=== PATIENT | male | born 1970 | race Caucasian/White ===

== ENCOUNTER 2023-07-04 17:07 | Emergency (ER) | payer SELFPAY ==
[2023-07-04 17:09] VITALS: BP 193/94; PULSE 87; RESP 19; TEMP 36.8; O2SAT 100; BMI 26.6
[2023-07-04 17:37] LABS: Bedside Glucose 468 mg/dL (74-106)
--- NOTE | 2023-07-04 17:44 | EDS_ITS ---
HPI History of Present Illness Chief Complaint: Hyperglycemia Informant: patient and spouse/S.O. Narrative Narrative: With high blood sugars. Patient states he came in today because his sugars are about 500. This started over the last couple days. He did have macaroni and cheese. Probably 3 or 4 years ago. For about a year or 2 they stayed at 160 range. Then they started to go up to 200. The last few months they have been going 200-300. The last few days they have been 200-500. He does have polyuria polydipsia and occasional clouding and halos in his vision. He does not overall feel sick though. No chest pain or trouble breathing. He has not seen a doctor in years. He has no medications that he takes no allergies. He started tracking his blood PFSH PFSH Home Medications metformin 500 mg tablet 500 mg PO BID #60 tabs 07/04/23 [Rx Last Taken Unknown] Allergy/AdvReac Type Severity Reaction Status Date / Time No Known Allergies Allergy Verified 07/04/23 17:09 Social History Smoking Status: Current every day smoker tobacco type: cigarettes ROS ROS ED ROS Narrative A complete review of systems was performed and is negative except as documented in the history of present illness. Some specific details below. Constitutional: No recent fevers or chills. EYE: No pain. Have occasional clouding of the vision and halos at night. ENT: No difficulty swallowing. No swelling. No pain. CV: No chest pain or palpitations. Respiratory: No dyspnea. No hemoptysis. No difficulty taking breaths. GI: Nausea vomiting or diarrhea. : No dysuria or hematuria. No frequency. Musculoskeletal: No recent trauma. No pains. Skin: No rash. Nondiaphoretic. Neuro: No weakness or numbness. Endocrine: He does have both polyuria or polydipsia. EXAM Physical Exam Narrative Exam Narrative: CONSTITUTIONAL: Patient is nontoxic in appearance. The patient looks comfortable. HEENT: No notable trauma. Mucous membranes somewhat dry. No sinus tenderness. No indication of pain with swallowing. Mildly poor dentition EYES: No conjunctival injection. No proptosis. CARDIOVASCULAR: Regular rate. Regular rhythm. No notable murmur. No JVD. RESPIRATORY: No respiratory distress. Breathing is unlabored. No wheezes. No rhonchi. No rales. No pain with a deep breath. GASTROINTESTINAL: Not distended. Bowel sounds are normal. No tenderness. No guarding. No rebound. No palpable mass. No bruit. GENITOURINARY: No tenderness over the bladder. No CVA tenderness. MUSCULOSKELETAL: Atraumatic. No peripheral edema. No cord. No tenderness along the deep venous system. No asymmetry. NEUROLOGICAL: Patient is alert and appropriate. No focal deficit noted. SKIN: No noted rashes. No diaphoresis. PSYCHIATRIC: Patient is calm. Mood is appropriate. Const Vital Signs: 07/04/23 17:09 07/04/23 17:23 Temperature 98.2 F Temperature Source Temporal Pulse Rate 87 Respiratory Rate 19 H Respiratory Effort Normal Blood Pressure 193/94 H Blood Pressure Mean 127 Pulse Ox 100 Oxygen Delivery Method Room Air MDM MDM MDM Narrative Medical decision making narrative: Patient CBC shows no marked abnormalities. Patient's electrolytes show pretty normal electrolytes and preserved renal function but his glucose was high at 430. Patient's LFTs were normal. His [id number] glucose was 468. He was given insulin and IV fluids. He is only down to about 400 now. This should continue to drop but we will get him more insulin and more IV fluids to see if we get him down a little lower. Patient's recheck he is 221. He would like to go home. I will get him started on metformin. I explained that he will likely need an increase the dose or other medications. But this would at least initiate some therapy pending seeing a physician. We discussed reasons to return. Lab Data Attestation: I reviewed the patient's lab results. Labs: Laboratory Results - last 24 hr 07/04/23 07/04/23 07/04/23 17:19 17:21 18:53 WBC 9.6 RBC 4.83 Hgb 15.4 Hct 43.5 MCV 90.1 MCH 31.9 MCHC 35.4 RDW Std Deviation 38.7 RDW Coeff of [place]illa 11.8 Plt Count 222 MPV 11.1 Immature Gran % (Auto) 0.500 Neut % (Auto) 62.4 Lymph % (Auto) 23.5 [place] % (Auto) 7.5 Eos % (Auto) 5.4 H Baso % (Auto) 0.7 Absolute Neuts (auto) 6.0 Absolute Lymphs (auto) 2.26 Nucleated RBC % 0 Sodium 134 L Potassium 3.9 Chloride 98 Carbon Dioxide 30.0 Anion Gap 6 BUN 18 Creatinine 1.00 Estim Creat Clear Calc 85.43 Est GFR (MDRD) Af Amer 100 Est GFR (MDRD) Non-Af 83 BUN/Creatinine Ratio 18.0 Glucose 439 H Calcium 9.0 Total Bilirubin 0.50 AST 21 ALT 42 Alkaline Phosphatase 67 Total Protein 7.8 Albumin 3.7 Globulin 4.1 Albumin/Globulin Ratio 0.9 POC Glucose 468 H* 401 H Discharge Plan Triage Chief Complaint: Hyperglycemia ED Provider: Antony Rodriguez Dx/Rx/DC Orders Clinical Impression: Hyperglycemia, New onset type 2 diabetes mellitus Instructions: ED Hyperglycemia New Susp Diabetes Prescriptions: New metformin 500 mg tablet 500 mg PO BID Qty: 60 0RF Primary Care Provider: Care Physician,No Primary Referrals: Mandi Pelletier MD [Med Staff - [employer]] - As soon as possible Care Physician,No Primary [Primary Care Provider] - Disposition Disposition: Home, Self Care
[2023-07-04] MEDS: 0.9% Normal Saline 1,000 ML 1000 ML IV (17:47)
[2023-07-04] MEDS: Insulin Lispro 100 UNIT/ML INSULN.PEN 12 UNIT SC (17:50)
[2023-07-04 17:59] LABS: Absolute Lymphocyte Count 2.26 X10^3/uL (0.83-4.51); Basophil# 0.07 X10^3/uL; Basophil% 0.7 % (0-1); Eosinophil# 0.52 X10^3/uL; Eosinophils% 5.4 % (0-5); Hematocrit 43.5 % (40-54); Hemoglobin 15.4 g/dL (13.0-16.5); Lymphocyte # 2.26 X10^3/ul (0.83-4.51); Lymphocyte % 23.5 % (19-41); Mean Corp Hgb Conc 35.4 g/dL (32-36); Mean Corpuscular Hgb 31.9 pg (27.0-32.0); Mean Corpuscular Volume 90.1 fL (80-94); Mean Platelet Vol. 11.1 fl (6.2-12.0); Monocyte# 0.72 X10^3/uL; Monocyte% 7.5 % (0-10); NRBC Flagged by Analyzer 0 % (0-5); Neutrophil % 62.4 % (47-70); Platelet Count 222 K/mm3 (150-450); RBC Distribution Width CV 11.8 % (11.6-14.6); RBC Distribution Width SD 38.7 fl (35.1-43.9); Red Blood Count 4.83 M/mm3 (4.6-6.2); White Blood Count 9.6 K/mm3 (4.4-11.0)
[2023-07-04 18:26] LABS: ALB/GLOB Ratio 0.9 RATIO (0.9-2.4); AST(SGOT) 21 U/L (15-37); Alanine Aminotransfer ALT/SGPT 42 U/L (16-61); Albumin, Serum 3.7 g/dL (3.2-5.0); Alkaline Phosphatase 67 U/L (45-117); Anion Gap 6 (5-15); BUN 18 mg/dL (7-18); Chloride 98 mmol/L (98-107); EST Glomerular Filtration Rate 83 mL/min (>60); Est Glom Filt Rate - Afr Amer 100 mL/min (>60); Estimated Creatinine Clearance 85.43 ml/min; Globulin 4.1 g/dL (2.2-4.2); Glucose 439 mg/dL (74-106); Potassium 3.9 mmol/L (3.5-5.1); Protein, Total 7.8 g/dL (6.4-8.2); Sodium Level 134 mmol/L (136-145)
[2023-07-04 19:11] LABS: Bedside Glucose 401 mg/dL (74-106)
[2023-07-04] MEDS: Insulin Lispro 100 UNIT/ML INSULN.PEN 14 UNIT SC (19:23)
[2023-07-04] MEDS: 0.9% Normal Saline 1,000 ML 999 ML IV (19:23)
[2023-07-04 21:02] LABS: Bedside Glucose 221 mg/dL (74-106)
[2023-07-04] MEDS: metFORMIN HCl 500 MG Tablet PO (21:23)
[2023-07-04 21:26] VITALS: PULSE 95; RESP 19; O2SAT 100
== END 2023-07-04 21:26 | disposition home or self-care (01) ==
PROVIDERS: Emergency Provider Emergency Medicine; Visit Provider Emergency Medicine
DX: E11.65 Type 2 diabetes mellitus with hyperglycemia (principal); F17.210 Nicotine dependence, cigarettes, uncomplicated
CPT/HCPCS: 80053; 82962; 85025; 96360; 96361; 96372; 99284; J7030; A4216

== ENCOUNTER 2023-08-24 16:20 | Emergency (ER) | payer SELFPAY ==
[2023-08-24 16:21] VITALS: BP 167/95; PULSE 91; RESP 16; TEMP 36.7; O2SAT 99; BMI 27.4
--- NOTE | 2023-08-24 17:19 | EX.ED.DYSGE1 ---
HPI History of Present Illness Chief Complaint: Hyperglycemia Informant: patient Narrative Narrative: Is a 53-year-old male presenting with dizziness, chest discomfort and high blood sugar. Patient was seen about a month ago for dizziness and found to be hyperglycemic likely new onset diabetic. He was given follow-up with [facility] primary care (Dr. Pelletier). He has been working on trying to follow-up there but has been having of some issues. He is officially been accepted as a patient but they are now figuring out his insurance. He notes he has been dizzy daily. He checked his blood sugar at work today however and his meter read high. He also notes today he has had chest discomfort. He points to the right anterior chest. He states been constant all day. He notes he did have it over a month ago but has not had it since. States he does feel mildly short of breath intermittently but is currently not complain of shortness of breath. The pain does not radiate. He describes it as both sharp and dull. Denies any aggravating or alleviating factors. Denies any swelling of his legs. Notes he did run out of the metformin prescribed him last month in the ER. Patient denies any polyuria or polydipsia at this time. Denies any urinary symptoms. Does report some nausea but denies any vomiting. Denies any change in his appetite. Positive tobacco use. Denies any alcohol or illicit drug use. Prior ER visit note reviewed from 07/04. [facility] Home Medications metformin 500 mg tablet 500 mg PO BID #60 tabs 08/24/23 [Rx Last Taken Unknown] Allergy/AdvReac Type Severity Reaction Status Date / Time No Known Allergies Allergy Verified 07/04/23 17:09 Social History Smoking Status: Current every day smoker tobacco type: cigarettes ROS ROS ED Constitutional Constitutional ED: Denies chills or fever(s) Eyes Eyes: Denies blurry vision or change in vision ENT ENT ED: Denies sore throat Cardiovascular Cardiovascular: Reports chest pain; Denies palpitations Respiratory/Chest Respiratory/Chest: Reports dyspnea; Denies cough Gastrointestinal Gastrointestinal: Denies abdominal pain, nausea or vomiting Musculoskeletal Musculoskeletal: Denies arthralgias or myalgias Integumentary Denies rash Neurologic Neurologic: Denies headache(s) or weakness Psychiatric Psychiatric: Denies anxiety Endocrine Endocrinology: Denies polydipsia or polyuria Hematologic/Lymphatic Hematologic/Lymphatic: Denies easy bleeding or easy bruising EXAM Physical Exam Const Vital Signs: 08/24/23 16:21 08/24/23 16:51 08/24/23 17:48 Temperature 98.0 F Temperature Source Temporal Pulse Rate 91 Pulse Rate [Lying] Pulse Rate [Sitting (for 1 minute prior to obtaining)] Pulse Rate [Standing (for 1 minute prior to obtaining)] Respiratory Rate 16 Respiratory Effort Normal Non-Labored Respiratory Pattern Normal Blood Pressure 167/95 H Blood Pressure [Lying] Blood Pressure [Sitting (for 1 minute prior to obtaining)] Blood Pressure [Standing (for 1 minute prior to obtaining)] Blood Pressure Mean 119 Blood Pressure Mean [Lying] Blood Pressure Mean [Sitting (for 1 minute prior to obtaining)] Blood Pressure Mean [Standing (for 1 minute prior to obtaining)] Pulse Ox 99 98 Oxygen Delivery Method Room Air Room Air 08/24/23 18:22 08/24/23 18:21 Temperature Temperature Source Pulse Rate 76 Pulse Rate [Lying] 72 Pulse Rate [Sitting (for 1 minute prior to obtaining)] 69 Pulse Rate [Standing (for 1 minute prior to obtaining)] 80 Respiratory Rate 16 Respiratory Effort Respiratory Pattern Blood Pressure Blood Pressure [Lying] 142/87 H Blood Pressure [Sitting (for 1 minute prior to obtaining)] 143/86 H Blood Pressure [Standing (for 1 minute prior to obtaining)] 129/86 H Blood Pressure Mean Blood Pressure Mean [Lying] 105 Blood Pressure Mean [Sitting (for 1 minute prior to obtaining)] 105 Blood Pressure Mean [Standing (for 1 minute prior to obtaining)] 100 Pulse Ox 98 Oxygen Delivery Method Room Air Positive well nourished and well developed General Appearance ED: well developed and NAD HEENT Reports moist mucous membranes Eyes PERRL and EOMs intact bilaterally Neck supple and no JVD Chest Wall inspection of chest normal and palpation of chest normal Chest Narrative: No reproducible chest wall tenderness Resp normal respiratory effort and clear to auscultation bilaterally Cardio regular rate, regular rhythm and no murmurs GI normal to inspection, nondistended, normoactive bowel sounds and non-tender Extremity normal to inspection General Extremety ED: Negative for edema or tenderness General Extremity: Negative for edema Neuro oriented x3 Sensorium / Orientation: alert Motor Exam: Negative for general weakness Psych mental status grossly normal Skin no rashes or lesions noted and no wounds MDM MDM MDM Narrative Medical decision making narrative: Patient evaluated for elevated blood sugar as well as chest pain. His blood sugars only been elevated for some time now. He is trying to establish with a PCP to get this under control. Glucose in triage is 267. Will obtain BMP to see what his serum glucose is as well as a cardiac work-up given his chest pain all day. A single troponin should be sufficient if it is normal since the pain has been constant all day. Patient was given IV fluids and check orthostatic vital signs. Patient does not truly orthostatic positive but does have a mild increase in heart rate and drop in blood pressure when he goes from sitting to standing. Is given IV fluids. He states he is has the same dizziness he has been having. He is mildly hyperglycemic however his blood sugars only 294. This is nowhere near high. His CBC and BMP is otherwise normal. He has a normal bicarb any x-rays a low anion gap. His labs are not consistent with DKA or HH NK. Patient will be given a new prescription for metformin with encouragement on the importance of following up outpatient. Seems that he is in the process of following up with [facility]/getting established. At this time I do not think patient requires admission. I do not think his chest discomfort is cardiac and his EKG does not show any acute ischemic changes and his high-sensitivity troponin is 4. Patient comfortable this plan of care. Discharged home in stable condition Lab Data Attestation: I reviewed the patient's lab results. Labs: Laboratory Results - last 24 hr 08/24/23 08/24/23 16:25 17:37 WBC 10.1 RBC 4.55 L Hgb 14.7 Hct 41.6 MCV 91.4 MCH 32.3 H MCHC 35.3 RDW Std Deviation 39.7 RDW Coeff of Kamilla 11.8 Plt Count 206 MPV 10.7 Immature Gran % (Auto) 0.300 Neut % (Auto) 57.3 Lymph % (Auto) 26.2 [place] % (Auto) 8.3 Eos % (Auto) 7.3 H Baso % (Auto) 0.6 Absolute Neuts (auto) 5.8 Absolute Lymphs (auto) 2.64 Nucleated RBC % 0 Sodium 134 L Potassium 3.9 Chloride 104 Carbon Dioxide 28.0 Anion Gap 2 L BUN 19 H Creatinine 0.94 Estim Creat Clear Calc 90.88 Est GFR (MDRD) Af Amer 108 Est GFR (MDRD) Non-Af 89 BUN/Creatinine Ratio 20.2 H Glucose 294 H Calcium 8.8 Troponin I High Sens 4 POC Glucose 267 H Radiography Chest X-Ray - ED: 2 View, Read by ED Physician, Read by Radiologist and No Acute Disease Diagnostic Testing: Clinical Impression(s) from Imaging Studies Chest X-Ray 08/24/23 17:48 IMPRESSION: Normal x-ray examination of the chest. Electronically Signed: Tenzin Fleming MD at 18:07 EDT , Rhythm Strip Rhythm Strip: Sinus Rhythm Rate: 80 Ectopy: None EKG Initial EKG: Attestation: I personally reviewed and interpreted this EKG as follows: Interpretation: Sinus Rhythm Comments: Normal sinus rhythm at a rate of 80 bpm First-degree AV block with a ME interval of 220 Normal axis Normal intervals Normal ST segments Compared to prior EKG patient now has a first-degree AV block Discharge Plan Triage Chief Complaint: Hyperglycemia ED Provider: Veena Roland Dx/Rx/DC Orders Clinical Impression: Hyperglycemia, Chest pain Instructions: ED Chest Pain, Uncertain Cause, ED Diabetic Hyperglycemia Prescriptions: Continued metformin 500 mg tablet 500 mg PO BID Qty: 60 0RF Primary Care Provider: Care Physician,No Primary Referrals: Mandi Pelletier MD [Med Staff - Practical Nursing Teacher] - As soon as possible Care Physician,No Primary [Primary Care Provider] - Activity Restrictions/Additional Instructions: Please make sure you are drinking plenty of fluids. You did have some mild findings of dehydration on your vital signs. Please follow-up with family care as we discussed. You have been given another month supply of your metformin for your blood sugar.
[2023-08-24 17:28] LABS: Bedside Glucose 267 mg/dL (74-106)
[2023-08-24] MEDS: 0.9% Normal Saline (1000mL) 1,000 ML 1000 ML IV (17:39)
[2023-08-24 17:48] VITALS: O2SAT 98
--- NOTE | 2023-08-24 17:48 | RAD_ITS ---
STUDY: X-RAY CHEST REASON FOR EXAM: Male, 53 years old. chest pain TECHNIQUE: PA and lateral views of the chest. COMPARISON: None. FINDINGS: The lungs are clear and expanded. There is no demonstrated pleural abnormality. Normal size heart. Normal mediastinum and digna. Normal visualized pulmonary arteries. Normal visualized aortic arch and descending thoracic aorta. Normal visualized thoracic spine. Normal visualized ribs, clavicles, and shoulders. There is no demonstrated abnormality of the visualized soft tissue structures of the upper abdomen. RAD/Chest PA and Lateral IMPRESSION: Normal x-ray examination of the chest. Electronically Signed: Tenzin Fleming MD at 18:07 EDT ,
[2023-08-24 17:51] LABS: Absolute Lymphocyte Count 2.64 X10^3/uL (0.83-4.51); Absolute Neutrophil Count 5.8 X10^3/uL (2.0-7.7); Basophil# 0.06 X10^3/uL; Basophil% 0.6 % (0-1); Eosinophil# 0.73 X10^3/uL; Eosinophils% 7.3 % (0-5); Hematocrit 41.6 % (40-54); Hemoglobin 14.7 g/dL (13.0-16.5); Lymphocyte # 2.64 X10^3/ul (0.83-4.51); Lymphocyte % 26.2 % (19-41); Mean Corp Hgb Conc 35.3 g/dL (32-36); Mean Corpuscular Hgb 32.3 pg (27.0-32.0); Mean Corpuscular Volume 91.4 fL (80-94); Mean Platelet Vol. 10.7 fl (6.2-12.0); Monocyte# 0.84 X10^3/uL; Monocyte% 8.3 % (0-10); NRBC Flagged by Analyzer 0 % (0-5); Neutrophil # 5.76 X10^3/uL (2.7-7.7); Neutrophil % 57.3 % (47-70); Platelet Count 206 K/mm3 (150-450); RBC Distribution Width CV 11.8 % (11.6-14.6); RBC Distribution Width SD 39.7 fl (35.1-43.9); Red Blood Count 4.55 M/mm3 (4.6-6.2); White Blood Count 10.1 K/mm3 (4.4-11.0)
[2023-08-24 18:12] LABS: Anion Gap 2 (5-15); BUN 19 mg/dL (7-18); BUN/Creat Ratio 20.2 RATIO (10-20); Calcium,Total 8.8 mg/dL (8.5-10.1); Chloride 104 mmol/L (98-107); Creatinine, Serum 0.94 mg/dL (0.70-1.30); EST Glomerular Filtration Rate 89 mL/min (>60); Est Glom Filt Rate - Afr Amer 108 mL/min (>60); Estimated Creatinine Clearance 90.88 ml/min; Glucose 294 mg/dL (74-106); Potassium 3.9 mmol/L (3.5-5.1); Sodium Level 134 mmol/L (136-145); Troponin-I HS 4 pg/mL (3.0-78.0)
[2023-08-24 18:21] VITALS: PULSE 76; RESP 16; O2SAT 98
[2023-08-24 18:22] VITALS: BP 129/86; BP 142/87; BP 143/86; PULSE 69; PULSE 72; PULSE 80
[2023-08-24 19:49] VITALS: BP 145/78; PULSE 79; RESP 16; O2SAT 98
== END 2023-08-24 19:51 | disposition home or self-care (01) ==
PROVIDERS: Emergency Provider Emergency Medicine; Visit Provider Emergency Medicine
DX: R73.9 Hyperglycemia, unspecified (principal); R07.9 Chest pain, unspecified; F17.210 Nicotine dependence, cigarettes, uncomplicated
CPT/HCPCS: 71046; 80048; 82962; 84484; 85025; 93005; 96360; 96361; 99285; J7030

== ENCOUNTER 2024-03-15 16:24 | Emergency (ER) | payer SELFPAY ==
[2024-03-15 16:25] VITALS: BP 138/76; PULSE 65; RESP 18; TEMP 36.3; O2SAT 97; BMI 26.2
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
[2024-03-15] MEDS: 0.9% Normal Saline (1000mL) 1,000 ML 1000 ML IV (16:43)
[2024-03-15] MEDS: Diphth,Pertuss(Acell),Tet Vac 0.5 ML Vial IM (16:43)
[2024-03-15] MEDS: HYDROmorphone 1 MG/ML Syringe IV ×2 (16:43→18:39)
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
[2024-03-15] MEDS: Ondansetron 4 MG/2 ML Vial IV (16:52)
[2024-03-15] MEDS: Cefazolin 1 GM/50 ML BAG IV (16:53)
[2024-03-15 16:58] LABS: Absolute Lymphocyte Count 2.49 X10^3/uL (0.83-4.51); Absolute Neutrophil Count 5.7 X10^3/uL (2.0-7.7); Basophil# 0.05 X10^3/uL; Basophil% 0.5 % (0-1); Eosinophil# 0.49 X10^3/uL; Eosinophils% 5.1 % (0-5); Hematocrit 41.2 % (40-54); Hemoglobin 14.6 g/dL (13.0-16.5); Lymphocyte # 2.49 X10^3/ul (0.83-4.51); Lymphocyte % 26.1 % (19-41); Mean Corp Hgb Conc 35.4 g/dL (32-36); Mean Corpuscular Hgb 31.7 pg (27.0-32.0); Mean Corpuscular Volume 89.6 fL (80-94); Mean Platelet Vol. 10.7 fl (6.2-12.0); Monocyte# 0.74 X10^3/uL; Monocyte% 7.7 % (0-10); NRBC Flagged by Analyzer 0 % (0-5); Neutrophil % 59.8 % (47-70); Platelet Count 215 K/mm3 (150-450); RBC Distribution Width CV 11.9 % (11.6-14.6); RBC Distribution Width SD 38.6 fl (35.1-43.9); White Blood Count 9.6 K/mm3 (4.4-11.0)
[2024-03-15 17:09] LABS: Alcohol, Blood (Medical)-Serum < 3.0 mg/dL
[2024-03-15 17:14] LABS: International Normalized Ratio 1.1; Partial Thromboplast Time 23.8 Seconds (24.1-36.2)
[2024-03-15 17:17] LABS: AST(SGOT) 17 U/L (15-37); Alanine Aminotransfer ALT/SGPT 30 U/L (16-61); Albumin, Serum 3.6 g/dL (3.2-5.0); Alkaline Phosphatase 53 U/L (45-117); Anion Gap 7 (5-15); BUN 18 mg/dL (7-18); Bilirubin, Direct 0.13 mg/dL (0.00-0.30); Calcium,Total 8.8 mg/dL (8.5-10.1); Chloride 105 mmol/L (98-107); EST Glomerular Filtration Rate 83 mL/min (>60); Est Glom Filt Rate - Afr Amer 100 mL/min (>60); Estimated Creatinine Clearance 85.43 ml/min; Globulin 3.4 g/dL (2.2-4.2); Glucose 329 mg/dL (74-106); Lipase 34 U/L (13-75); Potassium 3.9 mmol/L (3.5-5.1); Sodium Level 137 mmol/L (136-145); Troponin-I HS < 3 pg/mL (3.0-78.0)
[2024-03-15 17:24] VITALS: BP 123/80; PULSE 81; RESP 16; O2SAT 97
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
[2024-03-15 17:51] LABS: Bacteria 0 SEEN /hpf (None Seen); Mucous, Urine 0 SEEN /hpf (<or=2+); Red Blood Cells-Urine 0 SEEN /hpf (0-5); Squamous Epithelial Cells - UA 0 SEEN /hpf (0-5); White Blood Cells 0 SEEN /hpf (0-5)
[2024-03-15 17:53] LABS: Color, Urine Yellow (Yellow); Glucose, Dipstick 1000 mg/dl (Normal); Ketone-Dipstick Negative (Negative); Leukocyte Esterase-Dipstick Negative /ul (Negative); Nitrite-Dipstick Negative (Negative); Occult Blood-Urine Negative /ul (Negative); Protein-Dipstick 30 mg/dl (Negative); Urine Bilirubin Dipstick Negative (Negative); Urine Clarity Clear (Clear); Urine Urobilinogen Normal (Normal)
[2024-03-15 18:00] VITALS: BP 146/77; PULSE 77; RESP 18; TEMP 36.7; O2SAT 98
[2024-03-15 19:00] VITALS: BP 111/57; PULSE 71; RESP 18; O2SAT 97
--- NOTE | 2024-03-15 19:07 | MDS.RN ---
physicians called at 1745 for trauma transfer. ETA 30 min per Mara. Physicians crew came for a wheelchair transport and is taking trauma transfer instead due to other crew that was supposed to come not being here yet. Other crew will be taking wheelchair transfer.
[2024-03-15 19:18] VITALS: BP 111/57; PULSE 82; RESP 16; TEMP 36.8; O2SAT 98
== END 2024-03-15 19:19 | disposition short-term general hospital (02) ==
LOC: ED 17:50
PROVIDERS: Emergency Provider Emergency Medicine; Visit Provider Emergency Medicine
DX: S72.431 Displaced fracture of medial condyle of right femur (principal); E11.9 Type 2 diabetes mellitus without complications; S20.211A Contusion of right front wall of thorax, initial encounter; V84.5XXA Driver of special agricultural vehicle injured in nontraffic accident, initial encounter; Z23 Encounter for immunization; F17.210 Nicotine dependence, cigarettes, uncomplicated; Z79.84 Long term (current) use of oral hypoglycemic drugs
CPT/HCPCS: 70450; 71260; 72125; 73564; 73700; 74177; 80048; 80076; 80320; 81001; 83690; 84484; 85025; 85610; 85730; 90715; 93005; 96365; 96375; 96376; 99285; Q9967; G0480; J2405

== ENCOUNTER 2024-09-17 16:30 | Outpatient (RCR) | payer OTHER, SELFPAY ==
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
--- NOTE | 2024-06-11 11:29 | HP.PTREVAL ---
Re-Evaluation Intro: Russel Serrano MD, It has been my pleasure to treat JODI JUSTIN over the last 8 visits for Medial Condyle Fracture with Repair 03/13/24. Please see the progress note below for an update on the physical therapy plan of care! Subjective Subjective: Pt. reports overall doing better, but is still having a lot of pain with bending knee and with walking. He reports being HEP compliant without issues. 7/10 pain currently. Objective Objective/Function: Continues to be very limited into end range knee flexion with painful end feel. Avoided closed chain quad loading due to patellar tendon pain at arrival to session. Plan Plan Plan: Progress extension and flexion ROM, gait tolerance and some functional strengthening as tolerated. Pt. to schedule x2 per week leading upto when he sees physician. Balance/Gait/Functional tests Balance/Special Test Scores Lower Extremity Functional Score: 0 Goals Goals Goal 1:: Patient will be I with HEP and progression Goal Time Frame: 4-6 Weeks Goal 2:: Patient will ambulate >150 feet with a normalized gait pattern and LRD Goal Time Frame: 4-6 Weeks Goal 3:: Patient will demo 0-115 degrees of ROM Goal Time Frame: 4-6 Weeks Goal 4:: Patient will asc/desc 8 steps recip with 1 HR Goal Time Frame: 4-6 Weeks Goal 5:: Patient will have equal girth 6 above Goal Time Frame: 4-6 Weeks Goal 6:: Patient will report 80% improvement Goal Time Frame: 4-6 Weeks Anticipated Interventions Anticipated Interventions Patient/Client Instruction: Educate patient on: Benefits of Fitness Program Therapeutic Exercise to Include: Strength training, Endurance training, Balance training, Coordination, Agility training, Body mechanics, Postural training, Flexibilty training, Gait and locomotor training, Neuromotor development, Passive ROM, Active ROM, Dynamic Lumbar Stabilization and Scapular Strength/Stabilization Functional Training to Include: Gait training Functional electric stimulation: Yes TENS: Yes Cryotherapy (ice pack, ice massage): Yes Thermo therapy (hot pack): Yes Ultrasound (thermal/non thermal): No Re-Evaluation Ending Re-evaluation ending: Please do not hesitate to contact me at [phone] by phone or if you have questions or concerns regarding this new plan of care! Sincerely, Beau Haji DPT
--- NOTE | 2024-07-23 15:50 | HP.PTREVAL ---
Re-Evaluation Intro: Russel Serrano MD, It has been my pleasure to treat JODI JUSTIN over the last 16 visits for Medial Condyle Fracture with Repair 03/13/24. Please see the progress note below for an update on the physical therapy plan of care! Subjective Subjective: Pt. reports overall doing a little bit better. He reports not having much pain, but still is very stiff. Pt. reports being 60% better overall. Objective Objective/Function: ROM: AROM: 0-3- 95deg PROM 0-0-100deg MMT: RLE: knee ext; 33.7#, flexion 23.8# LLE: ext: 45.5#, flexion 45.0# stair: pt. is able to complete with out HR, ascending he has a slight functional weakness. Descending is a little bit more difficult during R stance phase. Pt. reports not much pain, but has some pain after aggressively bending his R knee. 30second sit to stand rep test: 12 reps I simulated work activities including lifting kettle bells from chair and placing on ground across from origin. pt. was able to complete with 30# KB. He did have some instability during R SLS phase of pattern. Pt. reports no pain with testing. Plan Plan Plan: I am recerting am to work on strengthening of his RLE progressive to functional/work condition exercises. He has to life upto 100#s? for work. Work on progressive quad/glute strengthening. Progress gait with focus on improved TKE during stance phase and proper knee flexion during swing phase. Balance/Gait/Functional tests Balance/Special Test Scores Lower Extremity Functional Score: 36 Goals Goals Goal 1:: Patient will be I with HEP and progression Goal Time Frame: 4-6 Weeks Goal Progress: Progressing Goal 2:: NEW GOAL: Pt. to complete 6 MWT with distance of at least 900feet. Goal Time Frame: 4-6 Weeks Goal Progress: Progressing Goal 3:: Patient will demo 0-115 degrees of ROM Goal Time Frame: 4-6 Weeks Goal Progress: Progressing Goal 4:: NEW GOAL: Pt. to lift 50# from chair height and move to table without instability or R knee pain in order to simulate work activities. Goal Time Frame: 4-6 Weeks Goal Progress: Progressing Goal 5:: NEW GOAL: Pt. to complete 30 sec sit to stand rep test with 17 reps. Goal Time Frame: 4-6 Weeks Goal Progress: Progressing Goal 6:: Patient will report 80% improvement Goal Time Frame: 4-6 Weeks Anticipated Interventions Anticipated Interventions Patient/Client Instruction: Educate patient on: Benefits of Fitness Program Therapeutic Exercise to Include: Strength training, Endurance training, Balance training, Coordination, Agility training, Body mechanics, Postural training, Flexibilty training, Gait and locomotor training, Neuromotor development, Passive ROM, Active ROM, Dynamic Lumbar Stabilization and Scapular Strength/Stabilization Functional Training to Include: Gait training Functional electric stimulation: Yes TENS: Yes Cryotherapy (ice pack, ice massage): Yes Thermo therapy (hot pack): Yes Ultrasound (thermal/non thermal): No Re-Evaluation Ending Re-evaluation ending: Please do not hesitate to contact me at [phone] by phone or if you have questions or concerns regarding this new plan of care! Sincerely, Beau Haji DPT
--- NOTE | 2024-11-06 11:04 | HP.PTDCSUM ---
Discharge Summary D/C summary: It has been my pleasure to treat JODI JUSTIN referred by Russel Serrano MD, with the diagnosis of Medial Condyle Fracture with Repair 03/13/24 for a total of 26 visit(s). Discharge Date: 11/06/24 Please see the following information for a summary of their discharge status. Subjective Subjective: Pt. reports doing well, but still having some issues. He reports that his insurance is running out and is going to do his exercises at home. Pain R knee: Pain Intensity (Out of 10): 2 Overall Improvement % Improvement: 75 Objective Objective/Function: ROM: AROM: 0-2- 100deg PROM 0-0-103deg MMT: RLE: knee ext; 38.1#, flexion 28.3# LLE: ext: 46.5#, flexion 48.1# stair: pt. is able to complete with out HR, ascending he has a slight functional weakness. Descending is a little bit more difficult during R stance phase. 30second sit to stand rep test: 14 reps Pt. was able to ambulate 918feet with 6 MWT Pt. was able to lift 50# from chair height to table height without much issue Pt. is doing well, he will be Dc from PT to HEP at this point in time. Goals Goal 1:: Patient will be I with HEP and progression Goal Progress: Goal Met Goal 2:: NEW GOAL: Pt. to complete 6 MWT with distance of at least 900feet. Goal Progress: Progressing Goal 3:: Patient will demo 0-115 degrees of ROM Goal Progress: Progressing Goal 4:: NEW GOAL: Pt. to lift 50# from chair height and move to table without instability or R knee pain in order to simulate work activities. Goal Progress: Goal Met Goal 5:: NEW GOAL: Pt. to complete 30 sec sit to stand rep test with 17 reps. Goal Progress: Progressing Goal 6:: Patient will report 80% improvement Goal Progress: Progressing Plan Plan: Pt. to be DC from PT at this point in time D/C Information d/c sentence: If there are questions or concerns regarding this patient's physical therapy, please feel free to call me at [phone]. Thank you for the referral of this patient. Sincerely, Beau Rowlandos, DPT Balance/Gait/Functional tests Balance/Special Test Scores Lower Extremity Functional Score: 36 30 Second Chair Rise Test Seconds: 14 6 Minute Walk Test: 918 without AD Improvement % Improvement: 75
== END 2024-09-17 19:00 | disposition home or self-care (01) ==
LOC: PT 16:30
PROVIDERS: Referring Provider Orthopaedic Surgery Foot and Ankle Surgery; Visit Provider Orthopaedic Surgery Foot and Ankle Surgery
DX: S72.434D Nondisplaced fracture of medial condyle of right femur, subsequent encounter for closed fracture with routine healing (principal)
CPT/HCPCS: 97110; 97162; 97530

== ENCOUNTER 2025-03-16 09:54 | Emergency (ER) | payer OTHER, SELFPAY ==
[2025-03-16 09:54] VITALS: BP 177/101; PULSE 84; RESP 16; TEMP 36.8; O2SAT 100; BMI 24.6
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
[2025-03-16 10:27] LABS: Bedside Glucose 480 mg/dL (74-106)
[2025-03-16 10:54] LABS: ALB/GLOB Ratio 1.3 RATIO (0.9-2.4); AST(SGOT) 15 U/L (<=37); Alanine Aminotransfer ALT/SGPT 14 U/L (<=46); Albumin, Serum 4.4 g/dL (3.5-5.0); Alkaline Phosphatase 74 U/L (40-129); Anion Gap 12 (5-15); BUN 16 mg/dL (4-19); Calcium,Total 9.8 mg/dL (7.6-11.0); Carbon Dioxide 25.4 mmol/L (21.0-32.0); Chloride 96 mmol/L (98-108); Creatinine, Serum 0.82 mg/dL (0.70-1.20); EST Glomerular Filtration Rate 104 (>60); Estimated Creatinine Clearance 102.98 ml/min (50-250); Globulin 3.3 g/dL (2.2-4.2); Glucose 514 mg/dL (70-99); Potassium 4.3 mmol/L (3.3-5.1); Protein, Total 7.7 g/dL (5.9-8.4); Sodium Level 133 mmol/L (133-145); Total Bilirubin 0.39 mg/dL (0.00-1.30)
[2025-03-16 11:13] VITALS: BP 128/87; PULSE 89; RESP 16; O2SAT 97
--- NOTE | 2025-03-16 11:25 | CM.ED ---
Social Work Reason for visit: No PCP Patient verified that he does not currently have a PCP, stating to social work that he did not like going to doctors. SW encouraged patient to utilize the [facility] provider list to find a primary physician. Patient stated he will think about it and took resources offered. No further needs at this time. Trina Ruvalcaba, ARCHITECTURAL TECHNOLOGIST, PLATFORM [employer]
== END 2025-03-16 11:16 | disposition home or self-care (01) ==
PROVIDERS: Emergency Provider Emergency Medicine; Visit Provider Emergency Medicine
DX: E11.65 Type 2 diabetes mellitus with hyperglycemia (principal); T24.231A Burn of second degree of right lower leg, initial encounter; X08.8XXA Exposure to other specified smoke, fire and flames, initial encounter; Z91.148 Patient's other noncompliance with medication regimen for other reason; F17.210 Nicotine dependence, cigarettes, uncomplicated; Z79.84 Long term (current) use of oral hypoglycemic drugs; Z79.899 Other long term (current) drug therapy
CPT/HCPCS: 80053; 82962; 99283; A4216